=== PATIENT | male | born 1980 | race Two or more races ===

== ENCOUNTER 2020-08-12 14:29 | Emergency (ER) | payer OTHER ==
[2020-08-12] MEDS ORDERED: methocarbamoL 500 MG TABLET PO STA (14:42)
[2020-08-12] MEDS ORDERED: KETOROLAC 60 MG/2 ML VIAL IM STA (14:42)
[2020-08-12] MEDS ORDERED: HYDROmorphone 1 MG/ML CARPUJECT IM STA (14:42)
--- NOTE | 2020-08-12 14:46 | ED Physician Documentation ---
PD HPI UPPER EXT INJURY - Stated complaint Stated Complaint: L ARM INJ - Chief complaint Chief Complaint: Trauma Ext - History obtained from History obtained from: Patient - History of Present Illness Location: Left, Arm, Elbow Pain level max: 10 Pain level now: 10 Improved by: Rest Worsened by: Moving, Palpating Associated symptoms: Swelling. No: Weakness, Numbness, Tingling Recently seen: Not recently seen - Additonal information Additional information: 39-year-old male presents to the emergency department with left arm pain. He states he was moving a washer when it slipped, he tried to catch it and felt a pop/snap in the anterior aspect of the left elbow. He is concerned about a biceps tendon rupture. States that his muscle "does not look right". Worse with movement, better with rest. Has not taken anything for pain. Patient is right-handed Review of Systems Constitutional: denies: Fever, Chills GI: denies: Vomiting, Diarrhea Skin: denies: Rash Musculoskeletal: denies: Neck pain, Back pain Neurologic: denies: Headache PD PAST MEDICAL HISTORY - Past Medical History Past Medical History: Yes - Past Surgical History Past Surgical History: Yes - Present Medications Home Medications: Ambulatory Orders Medication Instructions Recorded Confirmed Oxycodone HCl/Acetaminophen 1 - 2 each PO Q6H PRN #20 tab 08/12/20 [Percocet 5-325 mg Tablet] Venlafaxine HCl [Effexor Xr] 150 mg PO DAILY 08/12/20 08/12/20 methocarbamoL [Robaxin] 500 mg PO Q6H PRN #20 tab 08/12/20 - Allergies Allergies/Adverse Reactions: Allergies Allergy/AdvReac Type Severity Reaction Status Date / Time No Known Drug Allergies Allergy Verified 08/12/20 14:34 - Social History Does the pt smoke?: Yes Smoking Status: Current every day smoker Does the pt drink ETOH?: No Does the pt have substance abuse?: No Substance Use and Type: Marijuana - Immunizations Immunizations are current?: Yes - POLST Patient has POLST: No PD ED PE NORMAL - Vitals Vital signs reviewed: Yes - General General: Alert and oriented X 3, No acute distress - HEENT HEENT: Moist mucous membranes - Neck Neck: Supple, no meningeal sign - Derm Derm: Warm and dry - Extremities Extremities: Other (Patient over the left bicep. Tenderness at the bicep insertion in the antecubital fossa. Mild deformity of the bicep itself. No bony tenderness. Neurovascularly intact. No tenderness around the glenohumeral joint. Limited exam and range of motion secondary to pain.) - Neuro Neuro: Alert and oriented X 3 - Psych Psych: Normal mood, Normal affect Results - Vitals Vitals: Vital Signs - 24 hr 08/12/20 08/12/20 08/12/20 14:32 15:10 15:42 Temperature 36.4 C L 37.1 C 36.2 C L Heart Rate 94 95 84 Respiratory 20 17 18 Rate Blood Pressure 183/115 H 146/106 H 150/87 H O2 Saturation 98 99 97 08/12/20 17:35 Temperature 36.8 C Heart Rate 88 Respiratory 18 Rate Blood Pressure 149/97 H O2 Saturation 95 Oxygen O2 Source Room air - Rads (name of study) Left elbow x-ray Radiology: Prelim report reviewed, EMP read contemporaneously, See rad report (No fractures.) L arm MRI Radiology: Prelim report reviewed, EMP read contemporaneously, See rad report (1. Long head of biceps tendon rupture with retraction of the tendon about 4.5 cm. ) PD MEDICAL DECISION MAKING - ED course Complexity details: reviewed results, re-evaluated patient, considered differential, d/w patient, d/w product marketing consultant ED course: Patient with a tear of the long head of the biceps. Discussed the case with orthopedics. They recommended an MRI while in the emergency department so that it would be available to them at clinic follow-up later this week. Radiology also recommended MRI, therefore MRI was able to be performed. Patient was placed in a sling and Calos bandage for compression. Pain well controlled. Neurovascularly intact. Compartments are soft. Patient counseled regarding signs and symptoms for which I believe and urgent re-evaluation would be necessary. Patient with good understanding of and agreement to plan and is comfortable going home at this time This document was made in part using voice recognition software. While efforts are made to proofread this document, sound alike and grammatical errors may occur. Departure - Departure Disposition: 01 Home, Self Care Clinical Impression: Biceps tendon tear Condition: Good Instructions: Biceps Tendonitis Proximal Follow-Up: JEANE GONZALEZ DO [Primary Care Provider] - [facility] [Provider Group] - Within 3 Days Prescriptions: Oxycodone HCl/Acetaminophen [Percocet 5-325 mg Tablet] 1 - 2 each PO Q6H PRN #20 tab PRN Reason: pain methocarbamoL [Robaxin] 500 mg PO Q6H PRN #20 tab PRN Reason: muscle spasm Comments: Follow-up with orthopedics this week. Call tomorrow for an appointment. Your MRI should be read later tonight or tomorrow. Stay in the sling until released by orthopedics. I spoke with the orthopedist fashion artist today. Do not drink alcohol or drive while on narcotic pain medicine. Note that many narcotic pain relievers also contain tylenol/acetaminophen. Please ensure that your total dose of acetaminophen from all sources does not exceed 3 grams (3000mg) per day. You may constipated on this medication, take a stool softener such as "Colace" twice a day while you are on it. Also recommend a rakh-axa-yxywevq laxative such as senna or MiraLAX any day that you do not have a bowel movement. If you received narcotic pain medication in the emergency department, do not drive or operate machinery for the next 24 hours. Discharge Date/Time: 08/12/20 17:35
[2020-08-12 17:36] VITALS: BP 149/97
--- NOTE | 2020-08-12 17:46 | MRI Report ---
PROCEDURE: Upper Arm/Humerus LT W/O INDICATIONS: biceps tendon tear, L elbow TECHNIQUE: Noncontrast coronal and sagittal T1 spin echo and STIR; axial T1 spin echo and T2 fast spin echo with fat saturation through the elbow. COMPARISON: None. FINDINGS: Image quality: Excellent. Bones: Degenerative subcortical cystic change posterior aspect of the lateral condyle is present. Th e visualized bone marrow demonstrates normal signal on all sequences. The overlying cortex appears i ntact. No fractures lines or intra-osseous lesions. Soft tissues: There is abrupt termination of the long head of the biceps tendon at the level of the h umeral condyles. In the expected location of the distal biceps tendon, there is fluid in the tract to the expected insertion on the radius. A trace amount of tendon stump is seen at the radial tuberosit y. The tendon is retracted about 4.5 cm. Fluid extends cranially around the musculotendinous junction . Lacertus fibrosis appears intact. Brachialis tendon appears intact. IMPRESSION: 1. Long head of biceps tendon rupture with retraction of the tendon about 4.5 cm. Reviewed by: Keke Ontiveros MD on 08/12/2020 4:44 PM [facility] Approved by: Keke Ontiveros MD on 08/12/2020 4:44 PM [facility] Station ID: [id number]
--- NOTE | 2020-08-12 18:07 | XRAY Report ---
PROCEDURE: Elbow 3 View LT INDICATIONS: L elbow pain after dropping a washer TECHNIQUE: 3 views of the elbow were acquired. COMPARISON: None FINDINGS: Bones: No fractures or dislocations. No suspicious bony lesions. Soft tissues: No elbow joint effusion. No suspicious soft tissue calcifications. IMPRESSION: No fractures. Reviewed by: Keke Ontiveros MD on 08/12/2020 5:06 PM [facility] Approved by: Keke Ontiveros MD on 08/12/2020 5:06 PM [facility] Station ID: [id number]
== END 2020-08-12 17:35 | disposition home or self-care (01) ==
LOC: ED 14:29
DX: S46.112A Strain of muscle, fascia and tendon of long head of biceps, left arm, initial encounter (principal); X50.0XXA Overexertion from strenuous movement or load, initial encounter; Y93.89 Activity, other specified; F17.200 Nicotine dependence, unspecified, uncomplicated
CPT/HCPCS: 73080; 73218; 96372; 99283; 99284; A9270; J1170